=== PATIENT | male | born 1945 | race Caucasian/White ===

== ENCOUNTER 2018-03-28 12:02 | Inpatient (IN) | payer OTHER ==
[~2018-03-28] VITALS: Ht 180.3 cm; Wt 129.1 kg
[2018-03-28 12:41] LABS: BASOPHILS # (AUTO) 0.01 x10^3/uL (0-0.1); BASOPHILS % (AUTO) 0 % (0-1); EOSINOPHILS # (AUTO) 0.34 x10^3/uL (0-0.4); EOSINOPHILS % (AUTO) 3 % (1-7); LYMPHOCYTES # (AUTO) 0.89 x10^3/uL (1-3.4); LYMPHOCYTES % (AUTO) 8 % (22-44); MD NO; MEAN CORPUSCULAR HEMOGLOBIN 32.4 pg (27.5-34.5); MEAN CORPUSCULAR HGB CONC 33.5 g/dL (33.2-36.2); MEAN CORPUSCULAR VOLUME 96.7 fL (81-97); MEAN PLATELET VOLUME 8.2 fL (7.4-10.4); MONOCYTES # (AUTO) 1.31 x10^3/uL (0.2-0.8); MONOCYTES % (AUTO) 12 % (2-9); NEUTROPHILS # (AUTO) 8.24 x10^3/uL (1.8-6.8); NEUTROPHILS % (AUTO) 76 % (42-75); PLATELET COUNT 290 x10^3/uL (130-400); RED BLOOD COUNT 4.06 x10^6/uL (4.38-5.82); RED CELL DISTRIBUTION WIDTH 12.8 % (9.4-14.8)
[2018-03-28 12:57] LABS: ALKALINE PHOSPHATASE 69 U/L (45-117); BILIRUBIN,TOTAL 1.1 mg/dL (0.2-1.0); TOTAL PROTEIN 8.7 g/dL (6.4-8.2); TROPONIN I < 0.015 ng/mL (0.000-0.045)
[2018-03-28 13:03] LABS: ALANINE AMINOTRANSFERASE 26 U/L (12-78); ALBUMIN 3.2 g/dL (3.4-5.0); CALCIUM 8.7 mg/dL (8.5-10.1); CHLORIDE 78 mmol/L (98-107); CREATININE 0.93 mg/dL (0.7-1.3)
[2018-03-28 13:14] LABS: ANION GAP 6 mmol/L (5-15)
[2018-03-28] MEDS ORDERED: POTA20TA14 PO (13:35)
[2018-03-28] MEDS ORDERED: APIX5TAB PO (13:35)
[2018-03-28] MEDS ORDERED: TAMS0.4C2 PO (13:36)
[2018-03-28] MEDS ORDERED: DILT180C9 PO (13:36)
[2018-03-28] MEDS ORDERED: MULT-6 PO (13:37)
[2018-03-28] MEDS ORDERED: IPRA4AER INH (13:38)
[2018-03-28] MEDS ORDERED: ERGO500017 PO (13:38)
[2018-03-28] MEDS ORDERED: FINA5TAB4 PO (13:39)
[2018-03-28] MEDS ORDERED: LEVO88TA4 PO (13:40)
[2018-03-28] MEDS ORDERED: ALBU8.5H8 INH (13:40)
[2018-03-28] MEDS ORDERED: FURO-92 PO (13:41)
[2018-03-28] MEDS ORDERED: ASPI-496 PO (13:41)
[2018-03-28] MEDS ORDERED: POTASSIUM CHLORIDE 20 MEQ TAB.ER.PRT ONE (13:44)
[2018-03-28] MEDS ORDERED: LIDOCAINE-MPF 1%, 5ML ONE (13:44)
[2018-03-28] MEDS ORDERED: POTASSIUM CHLORIDE 20 MEQ TAB.ER.PRT PO ONE (14:00)
[2018-03-28] MEDS ORDERED: ALBUTEROL SULFATE 2.5 MG/3 ML NPPB PRN ×2 (15:30→16:30)
[2018-03-28] MEDS ORDERED: POLYETHYLENE GLYCOL 17 GM PACKET PO PRN (15:30)
[2018-03-28] MEDS ORDERED: BISACODYL 10 MG SUPP PR PRN (15:30)
[2018-03-28] MEDS ORDERED: LABETALOL 5MG/ML, 20ML IVPush PRN (15:30)
[2018-03-28] MEDS ORDERED: ACETAMINOPHEN 325 MG TABLET PO PRN (15:30)
[2018-03-28] MEDS ORDERED: ONDANSETRON ODT 4 MG PO PRN (15:30)
[2018-03-28] MEDS ORDERED: ONDANSETRON 2MG/ML, 2ML IVPush PRN (15:30)
[2018-03-28] MEDS ORDERED: hydrALAzine 20 MG/ML, 1ML IVPush PRN (15:30)
[2018-03-28 15:31] VITALS: BP 106/71
[2018-03-28] MEDS: PLEASE ENTER HEIGHT AND WEIGHT MC SCH (16:00)
[2018-03-28] MEDS: POTASSIUM CHLORIDE 20 MEQ TAB.ER.PRT PO SCH (17:35)
[2018-03-28] MEDS: ERGOCALCIFEROL 50,000 UNIT CAPSULE PO SCH (17:35)
[2018-03-28] MEDS: FUROSEMIDE 40 MG/4 ML IV SCH (17:36)
[2018-03-28 19:00] VITALS: BP 112/74
[2018-03-28] MEDS: DOCUSATE 100 MG CAPSULE PO SCH (21:13)
[2018-03-29 01:22] VITALS: BP 110/68
[2018-03-29 05:34] LABS: BASOPHILS # (AUTO) 0.05 x10^3/uL (0-0.1); BASOPHILS % (AUTO) 1 % (0-1); EOSINOPHILS # (AUTO) 0.53 x10^3/uL (0-0.4); EOSINOPHILS % (AUTO) 5 % (1-7); LYMPHOCYTES # (AUTO) 0.69 x10^3/uL (1-3.4); LYMPHOCYTES % (AUTO) 7 % (22-44); MD NO; MEAN CORPUSCULAR HEMOGLOBIN 32.5 pg (27.5-34.5); MEAN CORPUSCULAR HGB CONC 33.4 g/dL (33.2-36.2); MEAN CORPUSCULAR VOLUME 97.2 fL (81-97); MEAN PLATELET VOLUME 8.3 fL (7.4-10.4); MONOCYTES # (AUTO) 1.05 x10^3/uL (0.2-0.8); MONOCYTES % (AUTO) 11 % (2-9); NEUTROPHILS # (AUTO) 7.55 x10^3/uL (1.8-6.8); NEUTROPHILS % (AUTO) 77 % (42-75); PLATELET COUNT 242 x10^3/uL (130-400); RED CELL DISTRIBUTION WIDTH 12.8 % (9.4-14.8)
[2018-03-29 05:40] LABS: CHLORIDE 83 mmol/L (98-107)
[2018-03-29 05:51] LABS: ALANINE AMINOTRANSFERASE 23 U/L (12-78); ALBUMIN 2.6 g/dL (3.4-5.0); ALKALINE PHOSPHATASE 61 U/L (45-117); BILIRUBIN,TOTAL 0.7 mg/dL (0.2-1.0); CALCIUM 8.5 mg/dL (8.5-10.1); CREATININE 0.74 mg/dL (0.7-1.3); TOTAL PROTEIN 7.5 g/dL (6.4-8.2)
[2018-03-29 06:27] LABS: ANION GAP 5 mmol/L (5-15)
[2018-03-29 07:30] VITALS: BP 114/73
[2018-03-29] MEDS: PLEASE ENTER HEIGHT AND WEIGHT MC SCH ×3 (08:00→16:00)
[2018-03-29] MEDS: DILTIAZEM CD 180 MG CAP.ER.24H PO SCH (08:03)
[2018-03-29] MEDS: POTASSIUM CHLORIDE 20 MEQ TAB.ER.PRT PO SCH ×2 (08:03→17:59)
[2018-03-29] MEDS: FUROSEMIDE 40 MG/4 ML IV SCH (08:04)
[2018-03-29] MEDS: DOCUSATE 100 MG CAPSULE PO SCH ×2 (08:04→14:59)
[2018-03-29] MEDS: LEVOTHYROXINE 88 MCG TABLET PO SCH (08:12)
[2018-03-29 13:02] LABS: CALCIUM 8.5 mg/dL (8.5-10.1); CHLORIDE 83 mmol/L (98-107); CREATININE 0.83 mg/dL (0.7-1.3)
[2018-03-29 13:42] VITALS: BP 116/76
[2018-03-29 13:50] LABS: ANION GAP 2 mmol/L (5-15)
[2018-03-29 19:30] VITALS: BP 125/77
[2018-03-29] MEDS ORDERED: OMNIPAQUE 350 MG/ML, 75ML BOTTLE ONE (20:00)
[2018-03-29] MEDS: AcetaZOLAMIDE INJ 500 MG IVPush SCH (20:47)
[2018-03-29] MEDS: TAMSULOSIN 0.4 MG CAP.ER.24H PO SCH (20:48)
[2018-03-29] MEDS: FINASTERIDE 5 MG TABLET PO SCH (20:48)
[2018-03-30 01:39] VITALS: BP 122/81
[2018-03-30] MEDS: LEVOTHYROXINE 88 MCG TABLET PO SCH (05:02)
[2018-03-30 05:07] LABS: BASOPHILS # (AUTO) 0.03 x10^3/uL (0-0.1); BASOPHILS % (AUTO) 0 % (0-1); EOSINOPHILS # (AUTO) 0.41 x10^3/uL (0-0.4); EOSINOPHILS % (AUTO) 4 % (1-7); LYMPHOCYTES # (AUTO) 0.74 x10^3/uL (1-3.4); LYMPHOCYTES % (AUTO) 8 % (22-44); MD NO; MEAN CORPUSCULAR HEMOGLOBIN 32.4 pg (27.5-34.5); MEAN CORPUSCULAR HGB CONC 32.8 g/dL (33.2-36.2); MEAN CORPUSCULAR VOLUME 98.5 fL (81-97); MEAN PLATELET VOLUME 8.2 fL (7.4-10.4); MONOCYTES # (AUTO) 1.04 x10^3/uL (0.2-0.8); MONOCYTES % (AUTO) 11 % (2-9); NEUTROPHILS % (AUTO) 77 % (42-75); PLATELET COUNT 236 x10^3/uL (130-400); RED BLOOD COUNT 3.81 x10^6/uL (4.38-5.82); RED CELL DISTRIBUTION WIDTH 13.1 % (9.4-14.8)
[2018-03-30 05:17] LABS: ALBUMIN 2.8 g/dL (3.4-5.0); CALCIUM 8.7 mg/dL (8.5-10.1); CHLORIDE 85 mmol/L (98-107)
[2018-03-30 05:18] LABS: CREATININE 0.82 mg/dL (0.7-1.3)
[2018-03-30 05:29] LABS: ANION GAP 3 mmol/L (5-15)
[2018-03-30 07:23] VITALS: BP 110/72
[2018-03-30] MEDS ORDERED: POTASSIUM CHLORIDE 20 MEQ TAB.ER.PRT ONE ×2 (08:52→08:58)
[2018-03-30] MEDS: AcetaZOLAMIDE INJ 500 MG IVPush SCH ×2 (08:59→20:35)
[2018-03-30] MEDS: DILTIAZEM CD 180 MG CAP.ER.24H PO SCH (08:59)
[2018-03-30] MEDS: DOCUSATE 100 MG CAPSULE PO SCH ×2 (09:00→21:47)
[2018-03-30] MEDS: TAMSULOSIN 0.4 MG CAP.ER.24H PO SCH (09:00)
[2018-03-30] MEDS ORDERED: POTASSIUM CHLORIDE 20 MEQ TAB.ER.PRT PO SCH (09:00)
[2018-03-30] MEDS: FINASTERIDE 5 MG TABLET PO SCH (09:00)
[2018-03-30] MEDS ORDERED: POTASSIUM CHLORIDE 10% 40 MEQ/30 ML UDC ONE (09:04)
[2018-03-30] MEDS ORDERED: BUPIVACAINE/PF-EPI 0.5% 1:200K ONE (11:49)
[2018-03-30] MEDS ORDERED: POTASSIUM CHLORIDE 10% 40 MEQ/30 ML UDC PO ONE ×2 (13:00→22:00)
[2018-03-30 13:30] VITALS: BP 96/63
[2018-03-30] MEDS ORDERED: FENTANYL PF 100 MCG/2ML ONE (17:24)
[2018-03-30] MEDS ORDERED: BUPIVACAINE/PF-EPI 0.5% 1:200K INFIL ONE (17:52)
[2018-03-30] MEDS ORDERED: GLYCOPYRROLATE 0.2MG/1ML, 5ML ONE (18:06)
[2018-03-30] MEDS ORDERED: PROPOFOL 10 MG/ML, 20ML ONE (18:06)
[2018-03-30] MEDS ORDERED: NEOSTIGMINE 1 MG/ML, 10ML ONE (18:06)
[2018-03-30] MEDS ORDERED: SUCCINYLCHOLINE 20 MG/ML, 10ML ONE (18:06)
[2018-03-30] MEDS ORDERED: DEXAMETHASONE 4 MG/ML, 1ML ONE (18:06)
[2018-03-30] MEDS ORDERED: ROCURONIUM 10MG/ML,5ML ONE (18:06)
[2018-03-30] MEDS ORDERED: ONDANSETRON 2MG/ML, 2ML ONE (18:06)
[2018-03-30] MEDS ORDERED: CEFAZOLIN 1,000 MG ONE (18:06)
[2018-03-30] MEDS ORDERED: OXYcodone 5 MG/5 ML ORAL.SOL UDC PO PRN (18:30)
[2018-03-30] MEDS ORDERED: MEPERIDINE/PF 25MG/0.5ML IVPush PRN (18:30)
[2018-03-30] MEDS ORDERED: FENTANYL PF 100 MCG/2ML IV PRN (18:30)
[2018-03-30] MEDS ORDERED: HYDROmorphone 1 MG/ML, 1ML IV PRN (18:30)
[2018-03-30] MEDS ORDERED: LABETALOL 5MG/ML, 20ML IV PRN (18:30)
[2018-03-30] MEDS ORDERED: hydrALAzine 20 MG/ML, 1ML IV PRN (18:30)
[2018-03-30] MEDS ORDERED: PROCHLORPERAZINE 5 MG/ML, 2ML IV PRN (18:30)
[2018-03-30] MEDS ORDERED: DIPHENHYDRAMINE 50 MG/ML, 1ML IVPush PRN (18:30)
[2018-03-30] MEDS ORDERED: PROPOFOL 100 ML IV ONE (19:30)
[2018-03-30] MEDS ORDERED: PROPOFOL 100 ML IV PRN (20:14)
[2018-03-30] MEDS ORDERED: SENNA/DOCUSATE TABLET NG PRN (20:30)
[2018-03-30] MEDS ORDERED: LACTULOSE 20 GM/30 ML UDC NG PRN (20:30)
[2018-03-30] MEDS ORDERED: PHARMACY MAY ADJ FOR RENAL FX MC SCH (20:30)
[2018-03-30] MEDS ORDERED: SODIUM CHLORIDE 0.9% 1,000ML IVBOLUS ONE ×2 (20:30→22:30)
[2018-03-30] MEDS ORDERED: LIDOCAINE-MPF 1%, 2ML ENDO PRN (20:30)
[2018-03-30] MEDS ORDERED: FENTANYL PF 100 MCG/2ML IVPush PRN (20:30)
[2018-03-30] MEDS ORDERED: BISACODYL 10 MG SUPP PR PRN (20:30)
[2018-03-30] MEDS ORDERED: SENNOSIDES 8.8 MG/5 ML ORAL SOL NG PRN (20:30)
[2018-03-30] MEDS: ALBUTEROL/IPRATROPIUM 2.5MG/0.5MG, 3 ML INLINE SCH (20:30)
[2018-03-30 21:13] LABS: ANION GAP 9 mmol/L (5-15); CALCIUM 8.3 mg/dL (8.5-10.1); CHLORIDE 91 mmol/L (98-107)
[2018-03-30 21:14] LABS: TRIGLYCERIDES 125 mg/dL (50-200)
[2018-03-30] MEDS: POTASSIUM CHLORIDE 10% 40 MEQ/30 ML UDC PO SCH (21:39)
[2018-03-30] MEDS: FAMOTIDINE 20 MG/2 ML IV SCH (21:47)
[2018-03-30] MEDS: DEXMEDETOMIDINE 1,000 MCG in SODIUM CHLORIDE 0.9% 240 ML IV PRN (22:37)
[2018-03-31] MEDS ORDERED: POTASSIUM CHLORIDE 10% 40 MEQ/30 ML UDC PO ONE ×2 (02:00→08:00)
[2018-03-31] MEDS: ALBUTEROL/IPRATROPIUM 2.5MG/0.5MG, 3 ML INLINE SCH ×7 (02:10→22:50)
[2018-03-31] MEDS ORDERED: SODIUM CHLORIDE 0.9% 1,000ML IVBOLUS ONE (02:30)
[2018-03-31 03:42] VITALS: BP 79/52
[2018-03-31 04:14] LABS: BASOPHILS # (AUTO) 0.02 x10^3/uL (0-0.1); BASOPHILS % (AUTO) 0 % (0-1); EOSINOPHILS # (AUTO) 0.02 x10^3/uL (0-0.4); EOSINOPHILS % (AUTO) 0 % (1-7); LYMPHOCYTES % (AUTO) 4 % (22-44); MD NO; MEAN CORPUSCULAR HEMOGLOBIN 32.4 pg (27.5-34.5); MEAN CORPUSCULAR HGB CONC 33.4 g/dL (33.2-36.2); MEAN PLATELET VOLUME 8.4 fL (7.4-10.4); MONOCYTES # (AUTO) 0.73 x10^3/uL (0.2-0.8); MONOCYTES % (AUTO) 6 % (2-9); NEUTROPHILS # (AUTO) 10.17 x10^3/uL (1.8-6.8); NEUTROPHILS % (AUTO) 89 % (42-75); PLATELET COUNT 234 x10^3/uL (130-400); RED BLOOD COUNT 3.67 x10^6/uL (4.38-5.82); RED CELL DISTRIBUTION WIDTH 12.8 % (9.4-14.8)
[2018-03-31 04:27] LABS: ALBUMIN 2.2 g/dL (3.4-5.0); ANION GAP 7 mmol/L (5-15); CALCIUM 7.9 mg/dL (8.5-10.1); CHLORIDE 96 mmol/L (98-107)
[2018-03-31 04:31] LABS: ALANINE AMINOTRANSFERASE 17 U/L (12-78); ALKALINE PHOSPHATASE 47 U/L (45-117); BILIRUBIN,TOTAL 0.9 mg/dL (0.2-1.0); CREATININE 0.73 mg/dL (0.7-1.3); TOTAL PROTEIN 6.5 g/dL (6.4-8.2)
[2018-03-31] MEDS ORDERED: MIDAZOLAM 1 MG/ML, 5ML ONE (05:31)
[2018-03-31] MEDS ORDERED: NOREPINEPHRINE 1 MG/ML, 4ML ONE (05:53)
[2018-03-31] MEDS: TAMSULOSIN 0.4 MG CAP.ER.24H PO SCH (07:45)
[2018-03-31] MEDS: LEVOTHYROXINE 88 MCG TABLET PO SCH (07:45)
[2018-03-31] MEDS: FAMOTIDINE 20 MG/2 ML IV SCH ×2 (07:45→19:44)
[2018-03-31] MEDS ORDERED: MAGNESIUM SULFATE PMX 4GM/100M 100 ML IV ONE (08:00)
[2018-03-31] MEDS: DILTIAZEM CD 180 MG CAP.ER.24H PO SCH (08:29)
[2018-03-31] MEDS: DOCUSATE 100 MG CAPSULE PO SCH ×2 (08:29→19:44)
[2018-03-31] MEDS: AcetaZOLAMIDE INJ 500 MG IVPush SCH ×2 (08:29→19:37)
[2018-03-31] MEDS: FINASTERIDE 5 MG TABLET PO SCH (08:30)
[2018-03-31] MEDS: POTASSIUM CHLORIDE 10% 40 MEQ/30 ML UDC PO SCH (18:14)
[2018-03-31] MEDS: NOREPINEPHRINE 4 MG in SODIUM CHLORIDE 0.9% 246 ML IV PRN (19:43)
[2018-03-31] MEDS: DEXMEDETOMIDINE 1,000 MCG in SODIUM CHLORIDE 0.9% 240 ML IV PRN (19:43)
[2018-04-01] MEDS: ALBUTEROL/IPRATROPIUM 2.5MG/0.5MG, 3 ML INLINE SCH ×2 (01:58→06:30)
[2018-04-01 04:25] VITALS: BP 92/56
[2018-04-01 04:49] LABS: BASOPHILS # (AUTO) 0.03 x10^3/uL (0-0.1); BASOPHILS % (AUTO) 0 % (0-1); EOSINOPHILS # (AUTO) 0.19 x10^3/uL (0-0.4); EOSINOPHILS % (AUTO) 2 % (1-7); LYMPHOCYTES # (AUTO) 0.74 x10^3/uL (1-3.4); LYMPHOCYTES % (AUTO) 8 % (22-44); MD NO; MEAN CORPUSCULAR HEMOGLOBIN 32.8 pg (27.5-34.5); MEAN CORPUSCULAR HGB CONC 34.2 g/dL (33.2-36.2); MEAN PLATELET VOLUME 8.7 fL (7.4-10.4); MONOCYTES # (AUTO) 0.81 x10^3/uL (0.2-0.8); MONOCYTES % (AUTO) 8 % (2-9); NEUTROPHILS % (AUTO) 82 % (42-75); PLATELET COUNT 244 x10^3/uL (130-400); RED BLOOD COUNT 3.79 x10^6/uL (4.38-5.82); RED CELL DISTRIBUTION WIDTH 12.9 % (9.4-14.8)
[2018-04-01 04:59] LABS: ANION GAP 11 mmol/L (5-15); CALCIUM 8.1 mg/dL (8.5-10.1); CHLORIDE 102 mmol/L (98-107); CREATININE 0.77 mg/dL (0.7-1.3)
[2018-04-01] MEDS: LEVOTHYROXINE 88 MCG TABLET PO SCH (06:24)
[2018-04-01] MEDS ORDERED: POTASSIUM CHLORIDE 10% 40 MEQ/30 ML UDC PO SCH (09:00)
[2018-04-01] MEDS ORDERED: ALBUTEROL/IPRATROPIUM 2.5MG/0.5MG, 3 ML NPPB PRN (09:30)
[2018-04-01] MEDS: TAMSULOSIN 0.4 MG CAP.ER.24H PO SCH (09:54)
[2018-04-01] MEDS: FINASTERIDE 5 MG TABLET PO SCH (09:54)
[2018-04-01] MEDS: DILTIAZEM CD 180 MG CAP.ER.24H PO SCH ×2 (09:54→09:59)
[2018-04-01] MEDS: DOCUSATE 100 MG CAPSULE PO SCH ×2 (09:55→20:42)
[2018-04-01] MEDS: FAMOTIDINE 20 MG/2 ML IV SCH ×2 (09:55→20:41)
[2018-04-01] MEDS: AcetaZOLAMIDE INJ 500 MG IVPush SCH ×2 (10:07→20:41)
[2018-04-01] MEDS: ALBUTEROL/IPRATROPIUM 2.5MG/0.5MG, 3 ML NPPB SCH ×3 (10:58→19:58)
[2018-04-01] MEDS ORDERED: POTASSIUM CHLORIDE 20 MEQ TAB.ER.PRT PO SCH (21:00)
[2018-04-01] MEDS: NOREPINEPHRINE 4 MG in SODIUM CHLORIDE 0.9% 246 ML IV PRN (22:09)
[2018-04-02 04:23] LABS: BASOPHILS # (AUTO) 0.03 x10^3/uL (0-0.1); BASOPHILS % (AUTO) 0 % (0-1); EOSINOPHILS # (AUTO) 0.61 x10^3/uL (0-0.4); EOSINOPHILS % (AUTO) 5 % (1-7); LYMPHOCYTES # (AUTO) 0.94 x10^3/uL (1-3.4); LYMPHOCYTES % (AUTO) 8 % (22-44); MD NO; MEAN CORPUSCULAR HEMOGLOBIN 31.6 pg (27.5-34.5); MEAN CORPUSCULAR HGB CONC 32.7 g/dL (33.2-36.2); MEAN CORPUSCULAR VOLUME 96.8 fL (81-97); MEAN PLATELET VOLUME 8.2 fL (7.4-10.4); MONOCYTES % (AUTO) 10 % (2-9); NEUTROPHILS # (AUTO) 8.54 x10^3/uL (1.8-6.8); NEUTROPHILS % (AUTO) 76 % (42-75); PLATELET COUNT 253 x10^3/uL (130-400); RED BLOOD COUNT 3.56 x10^6/uL (4.38-5.82); RED CELL DISTRIBUTION WIDTH 12.9 % (9.4-14.8)
[2018-04-02 04:37] LABS: ANION GAP 4 mmol/L (5-15); CALCIUM 8.2 mg/dL (8.5-10.1); CHLORIDE 103 mmol/L (98-107); TRIGLYCERIDES 114 mg/dL (50-200)
[2018-04-02 04:53] LABS: O2 FLOW 4 L/min
[2018-04-02] MEDS: LEVOTHYROXINE 88 MCG TABLET PO SCH (05:44)
[2018-04-02] MEDS: ALBUTEROL/IPRATROPIUM 2.5MG/0.5MG, 3 ML NPPB SCH ×4 (06:30→20:05)
[2018-04-02] MEDS: FAMOTIDINE 20 MG/2 ML IV SCH (08:03)
[2018-04-02] MEDS: DOCUSATE 100 MG CAPSULE PO SCH ×2 (08:03→20:27)
[2018-04-02] MEDS: AcetaZOLAMIDE INJ 500 MG IVPush SCH ×2 (08:03→20:27)
[2018-04-02] MEDS: FINASTERIDE 5 MG TABLET PO SCH (08:04)
[2018-04-02] MEDS: TAMSULOSIN 0.4 MG CAP.ER.24H PO SCH (08:04)
[2018-04-02] MEDS ORDERED: VASOPRESSIN 100 UNIT in SODIUM CHLORIDE 0.9% 495 ML IV PRN (08:30)
[2018-04-02] MEDS: FAMOTIDINE 20 MG TABLET PO SCH ×2 (09:00→20:27)
[2018-04-02] MEDS: HYDROCORTISONE 100 MG INJ. IVPush SCH ×3 (14:30→22:36)
[2018-04-03 04:40] LABS: BASOPHILS # (AUTO) 0.02 x10^3/uL (0-0.1); BASOPHILS % (AUTO) 0 % (0-1); EOSINOPHILS # (AUTO) 0.05 x10^3/uL (0-0.4); EOSINOPHILS % (AUTO) 1 % (1-7); LYMPHOCYTES # (AUTO) 0.58 x10^3/uL (1-3.4); LYMPHOCYTES % (AUTO) 6 % (22-44); MD NO; MEAN CORPUSCULAR HEMOGLOBIN 32.3 pg (27.5-34.5); MEAN CORPUSCULAR HGB CONC 33.3 g/dL (33.2-36.2); MEAN CORPUSCULAR VOLUME 97.3 fL (81-97); MEAN PLATELET VOLUME 8.4 fL (7.4-10.4); MONOCYTES # (AUTO) 0.74 x10^3/uL (0.2-0.8); MONOCYTES % (AUTO) 8 % (2-9); NEUTROPHILS # (AUTO) 7.57 x10^3/uL (1.8-6.8); NEUTROPHILS % (AUTO) 85 % (42-75); PLATELET COUNT 222 x10^3/uL (130-400); RED CELL DISTRIBUTION WIDTH 13.1 % (9.4-14.8)
[2018-04-03 04:52] LABS: ANION GAP 5 mmol/L (5-15); CALCIUM 8.2 mg/dL (8.5-10.1); CHLORIDE 101 mmol/L (98-107); CREATININE 0.65 mg/dL (0.7-1.3)
[2018-04-03] MEDS: LEVOTHYROXINE 88 MCG TABLET PO SCH (06:11)
[2018-04-03] MEDS: HYDROCORTISONE 100 MG INJ. IVPush SCH ×2 (06:30→21:05)
[2018-04-03] MEDS: ALBUTEROL/IPRATROPIUM 2.5MG/0.5MG, 3 ML NPPB SCH ×2 (06:45→21:19)
[2018-04-03] MEDS: AcetaZOLAMIDE INJ 500 MG IVPush SCH ×2 (08:48→21:06)
[2018-04-03] MEDS: DILTIAZEM CD 180 MG CAP.ER.24H PO SCH (08:48)
[2018-04-03] MEDS: TAMSULOSIN 0.4 MG CAP.ER.24H PO SCH (08:48)
[2018-04-03] MEDS: DOCUSATE 100 MG CAPSULE PO SCH ×2 (08:48→21:04)
[2018-04-03] MEDS: FINASTERIDE 5 MG TABLET PO SCH (08:48)
[2018-04-03] MEDS: FAMOTIDINE 20 MG TABLET PO SCH ×2 (08:48→21:04)
[2018-04-03] MEDS ORDERED: SODIUM CHLORIDE 0.9% INTRAPL ONE (16:00)
[2018-04-03] MEDS ORDERED: DOXYCYCLINE INTRAPL ONE (16:00)
[2018-04-04 04:24] LABS: BASOPHILS # (AUTO) 0.02 x10^3/uL (0-0.1); BASOPHILS % (AUTO) 0 % (0-1); EOSINOPHILS # (AUTO) 0.14 x10^3/uL (0-0.4); EOSINOPHILS % (AUTO) 2 % (1-7); LYMPHOCYTES # (AUTO) 0.59 x10^3/uL (1-3.4); LYMPHOCYTES % (AUTO) 7 % (22-44); MD NO; MEAN CORPUSCULAR HEMOGLOBIN 32.4 pg (27.5-34.5); MEAN CORPUSCULAR HGB CONC 33.5 g/dL (33.2-36.2); MEAN CORPUSCULAR VOLUME 96.7 fL (81-97); MEAN PLATELET VOLUME 8.6 fL (7.4-10.4); MONOCYTES % (AUTO) 7 % (2-9); NEUTROPHILS # (AUTO) 7.26 x10^3/uL (1.8-6.8); NEUTROPHILS % (AUTO) 84 % (42-75); PLATELET COUNT 246 x10^3/uL (130-400); RED BLOOD COUNT 3.39 x10^6/uL (4.38-5.82); RED CELL DISTRIBUTION WIDTH 12.8 % (9.4-14.8)
[2018-04-04 04:35] LABS: ANION GAP 5 mmol/L (5-15); CALCIUM 8.3 mg/dL (8.5-10.1); CHLORIDE 102 mmol/L (98-107); CREATININE 0.58 mg/dL (0.7-1.3)
[2018-04-04] MEDS: LEVOTHYROXINE 88 MCG TABLET PO SCH (06:22)
[2018-04-04] MEDS: FAMOTIDINE 20 MG TABLET PO SCH ×2 (09:18→21:10)
[2018-04-04] MEDS: TAMSULOSIN 0.4 MG CAP.ER.24H PO SCH (09:18)
[2018-04-04] MEDS: AcetaZOLAMIDE INJ 500 MG IVPush SCH ×2 (09:18→22:08)
[2018-04-04] MEDS: DILTIAZEM CD 180 MG CAP.ER.24H PO SCH (09:18)
[2018-04-04] MEDS: DOCUSATE 100 MG CAPSULE PO SCH ×2 (09:18→21:10)
[2018-04-04] MEDS: HYDROCORTISONE 100 MG INJ. IVPush SCH (09:18)
[2018-04-04] MEDS: FINASTERIDE 5 MG TABLET PO SCH (09:19)
[2018-04-04] MEDS: ALBUTEROL/IPRATROPIUM 2.5MG/0.5MG, 3 ML NPPB SCH ×2 (10:37→20:32)
[2018-04-04] MEDS: APIXABAN 5 MG TABLET PO SCH ×2 (12:06→21:10)
[2018-04-04] MEDS: ERGOCALCIFEROL 50,000 UNIT CAPSULE PO SCH (14:57)
[2018-04-04 16:27] VITALS: BP 102/66
[2018-04-04 21:01] VITALS: BP 103/61
[2018-04-05 01:03] VITALS: BP 104/61
[2018-04-05 05:11] LABS: BASOPHILS # (AUTO) 0.03 x10^3/uL (0-0.1); BASOPHILS % (AUTO) 0 % (0-1); EOSINOPHILS # (AUTO) 0.23 x10^3/uL (0-0.4); EOSINOPHILS % (AUTO) 3 % (1-7); LYMPHOCYTES # (AUTO) 0.75 x10^3/uL (1-3.4); LYMPHOCYTES % (AUTO) 9 % (22-44); MD NO; MEAN CORPUSCULAR HEMOGLOBIN 31.7 pg (27.5-34.5); MEAN CORPUSCULAR HGB CONC 32.9 g/dL (33.2-36.2); MEAN CORPUSCULAR VOLUME 96.3 fL (81-97); MEAN PLATELET VOLUME 8.5 fL (7.4-10.4); MONOCYTES # (AUTO) 0.92 x10^3/uL (0.2-0.8); MONOCYTES % (AUTO) 11 % (2-9); NEUTROPHILS # (AUTO) 6.58 x10^3/uL (1.8-6.8); NEUTROPHILS % (AUTO) 77 % (42-75); PLATELET COUNT 274 x10^3/uL (130-400); RED BLOOD COUNT 3.47 x10^6/uL (4.38-5.82); RED CELL DISTRIBUTION WIDTH 12.7 % (9.4-14.8)
[2018-04-05 05:18] LABS: ANION GAP 5 mmol/L (5-15); CHLORIDE 104 mmol/L (98-107)
[2018-04-05 05:20] LABS: CALCIUM 8.5 mg/dL (8.5-10.1); CREATININE 0.62 mg/dL (0.7-1.3)
[2018-04-05] MEDS: LEVOTHYROXINE 88 MCG TABLET PO SCH (05:53)
[2018-04-05] MEDS: ALBUTEROL/IPRATROPIUM 2.5MG/0.5MG, 3 ML NPPB SCH (07:25)
[2018-04-05 08:04] VITALS: BP 105/58
[2018-04-05] MEDS ORDERED: HYDROCORTISONE 100 MG INJ. IVPush SCH (09:00)
[2018-04-05] MEDS: TAMSULOSIN 0.4 MG CAP.ER.24H PO SCH (10:06)
[2018-04-05] MEDS: APIXABAN 5 MG TABLET PO SCH ×2 (10:06→21:19)
[2018-04-05] MEDS: DILTIAZEM CD 180 MG CAP.ER.24H PO SCH (10:07)
[2018-04-05] MEDS: FAMOTIDINE 20 MG TABLET PO SCH ×2 (10:07→21:19)
[2018-04-05] MEDS: DOCUSATE 100 MG CAPSULE PO SCH ×2 (10:08→21:19)
[2018-04-05] MEDS: FINASTERIDE 5 MG TABLET PO SCH (10:08)
[2018-04-05] MEDS: AcetaZOLAMIDE INJ 500 MG IVPush SCH ×2 (10:11→21:19)
[2018-04-05 12:25] VITALS: BP 101/58
[2018-04-05 18:46] VITALS: BP 94/45
[2018-04-05] MEDS: ALBUTEROL/IPRATROPIUM 2.5MG/0.5MG, 3 ML IPPB SCH (19:46)
[2018-04-06 00:53] VITALS: BP 116/73
[2018-04-06 05:23] LABS: CHLORIDE 104 mmol/L (98-107)
[2018-04-06 05:28] LABS: ANION GAP 8 mmol/L (5-15); CALCIUM 8.4 mg/dL (8.5-10.1); CREATININE 0.61 mg/dL (0.7-1.3)
[2018-04-06 05:52] LABS: BASOPHILS # (AUTO) 0.05 x10^3/uL (0-0.1); BASOPHILS % (AUTO) 0 % (0-1); EOSINOPHILS # (AUTO) 0.18 x10^3/uL (0-0.4); EOSINOPHILS % (AUTO) 2 % (1-7); LYMPHOCYTES # (AUTO) 0.78 x10^3/uL (1-3.4); LYMPHOCYTES % (AUTO) 7 % (22-44); MD NO; MEAN CORPUSCULAR HEMOGLOBIN 32.6 pg (27.5-34.5); MEAN CORPUSCULAR HGB CONC 33.8 g/dL (33.2-36.2); MEAN CORPUSCULAR VOLUME 96.5 fL (81-97); MEAN PLATELET VOLUME 8.7 fL (7.4-10.4); MONOCYTES # (AUTO) 1.38 x10^3/uL (0.2-0.8); MONOCYTES % (AUTO) 12 % (2-9); NEUTROPHILS # (AUTO) 9.58 x10^3/uL (1.8-6.8); NEUTROPHILS % (AUTO) 80 % (42-75); PLATELET COUNT 285 x10^3/uL (130-400); RED BLOOD COUNT 3.55 x10^6/uL (4.38-5.82); RED CELL DISTRIBUTION WIDTH 13.1 % (9.4-14.8)
[2018-04-06] MEDS: LEVOTHYROXINE 88 MCG TABLET PO SCH (06:27)
[2018-04-06 06:47] VITALS: BP 134/84
[2018-04-06] MEDS: ALBUTEROL/IPRATROPIUM 2.5MG/0.5MG, 3 ML IPPB SCH ×3 (07:46→18:50)
[2018-04-06] MEDS: DILTIAZEM CD 180 MG CAP.ER.24H PO SCH (08:38)
[2018-04-06] MEDS: DOCUSATE 100 MG CAPSULE PO SCH ×2 (08:38→19:58)
[2018-04-06] MEDS: FINASTERIDE 5 MG TABLET PO SCH (08:38)
[2018-04-06] MEDS: TAMSULOSIN 0.4 MG CAP.ER.24H PO SCH (08:38)
[2018-04-06] MEDS: AcetaZOLAMIDE INJ 500 MG IVPush SCH ×2 (08:39→19:59)
[2018-04-06] MEDS: FAMOTIDINE 20 MG TABLET PO SCH ×2 (08:39→19:59)
[2018-04-06] MEDS: APIXABAN 5 MG TABLET PO SCH ×2 (08:39→19:59)
[2018-04-06 12:13] VITALS: BP 101/61
[2018-04-06 19:53] VITALS: BP 118/70
[2018-04-07 03:35] VITALS: BP 88/58
[2018-04-07] MEDS: LEVOTHYROXINE 88 MCG TABLET PO SCH (05:05)
[2018-04-07 05:52] LABS: BASOPHILS # (AUTO) 0.04 x10^3/uL (0-0.1); BASOPHILS % (AUTO) 0 % (0-1); EOSINOPHILS # (AUTO) 0.18 x10^3/uL (0-0.4); EOSINOPHILS % (AUTO) 2 % (1-7); LYMPHOCYTES # (AUTO) 0.99 x10^3/uL (1-3.4); LYMPHOCYTES % (AUTO) 9 % (22-44); MD NO; MEAN CORPUSCULAR HGB CONC 33.2 g/dL (33.2-36.2); MEAN CORPUSCULAR VOLUME 96.4 fL (81-97); MEAN PLATELET VOLUME 8.8 fL (7.4-10.4); MONOCYTES # (AUTO) 1.34 x10^3/uL (0.2-0.8); MONOCYTES % (AUTO) 12 % (2-9); NEUTROPHILS # (AUTO) 8.58 x10^3/uL (1.8-6.8); NEUTROPHILS % (AUTO) 77 % (42-75); PLATELET COUNT 304 x10^3/uL (130-400); RED BLOOD COUNT 3.59 x10^6/uL (4.38-5.82); RED CELL DISTRIBUTION WIDTH 12.9 % (9.4-14.8)
[2018-04-07 05:59] LABS: ALBUMIN 2.1 g/dL (3.4-5.0); ANION GAP 6 mmol/L (5-15); CALCIUM 7.9 mg/dL (8.5-10.1); CHLORIDE 104 mmol/L (98-107)
[2018-04-07 06:05] LABS: ALANINE AMINOTRANSFERASE 39 U/L (12-78); ALKALINE PHOSPHATASE 77 U/L (45-117); BILIRUBIN,TOTAL 0.8 mg/dL (0.2-1.0); CREATININE 0.54 mg/dL (0.7-1.3); TOTAL PROTEIN 6.4 g/dL (6.4-8.2)
[2018-04-07 06:48] VITALS: BP 104/58
[2018-04-07] MEDS: FINASTERIDE 5 MG TABLET PO SCH (09:43)
[2018-04-07] MEDS: FAMOTIDINE 20 MG TABLET PO SCH ×2 (09:43→21:31)
[2018-04-07] MEDS: AcetaZOLAMIDE INJ 500 MG IVPush SCH (09:43)
[2018-04-07] MEDS: DILTIAZEM CD 180 MG CAP.ER.24H PO SCH (09:43)
[2018-04-07] MEDS: APIXABAN 5 MG TABLET PO SCH ×2 (09:43→21:31)
[2018-04-07] MEDS: TAMSULOSIN 0.4 MG CAP.ER.24H PO SCH (09:43)
[2018-04-07] MEDS: DOCUSATE 100 MG CAPSULE PO SCH ×2 (09:43→21:31)
[2018-04-07] MEDS: ALBUTEROL/IPRATROPIUM 2.5MG/0.5MG, 3 ML IPPB SCH (10:00)
[2018-04-07 12:51] VITALS: BP 89/53
[2018-04-07 13:56] VITALS: BP 91/57
[2018-04-07 20:42] VITALS: BP 106/58
[2018-04-08 01:59] VITALS: BP 99/60
[2018-04-08 05:22] LABS: BASOPHILS # (AUTO) 0.07 x10^3/uL (0-0.1); BASOPHILS % (AUTO) 1 % (0-1); EOSINOPHILS # (AUTO) 0.27 x10^3/uL (0-0.4); EOSINOPHILS % (AUTO) 2 % (1-7); LYMPHOCYTES # (AUTO) 0.96 x10^3/uL (1-3.4); LYMPHOCYTES % (AUTO) 8 % (22-44); MD NO; MEAN CORPUSCULAR HEMOGLOBIN 32.5 pg (27.5-34.5); MEAN CORPUSCULAR HGB CONC 33.8 g/dL (33.2-36.2); MEAN PLATELET VOLUME 8.4 fL (7.4-10.4); MONOCYTES # (AUTO) 1.42 x10^3/uL (0.2-0.8); MONOCYTES % (AUTO) 12 % (2-9); NEUTROPHILS # (AUTO) 9.05 x10^3/uL (1.8-6.8); NEUTROPHILS % (AUTO) 77 % (42-75); PLATELET COUNT 327 x10^3/uL (130-400); RED BLOOD COUNT 3.21 x10^6/uL (4.38-5.82); RED CELL DISTRIBUTION WIDTH 13.1 % (9.4-14.8)
[2018-04-08 05:43] LABS: CHLORIDE 104 mmol/L (98-107)
[2018-04-08 05:49] LABS: ALANINE AMINOTRANSFERASE 34 U/L (12-78); ALKALINE PHOSPHATASE 77 U/L (45-117); ANION GAP 6 mmol/L (5-15); BILIRUBIN,TOTAL 0.7 mg/dL (0.2-1.0); CALCIUM 8.4 mg/dL (8.5-10.1); TOTAL PROTEIN 6.4 g/dL (6.4-8.2)
[2018-04-08] MEDS: LEVOTHYROXINE 88 MCG TABLET PO SCH (06:31)
[2018-04-08 06:53] VITALS: BP 93/62
[2018-04-08] MEDS: ALBUTEROL/IPRATROPIUM 2.5MG/0.5MG, 3 ML IPPB SCH ×2 (07:45→20:20)
[2018-04-08] MEDS: FAMOTIDINE 20 MG TABLET PO SCH ×2 (08:54→21:34)
[2018-04-08] MEDS: APIXABAN 5 MG TABLET PO SCH ×2 (08:54→21:34)
[2018-04-08] MEDS: FINASTERIDE 5 MG TABLET PO SCH (08:54)
[2018-04-08] MEDS: TAMSULOSIN 0.4 MG CAP.ER.24H PO SCH (08:54)
[2018-04-08] MEDS: DOCUSATE 100 MG CAPSULE PO SCH ×2 (08:54→21:34)
[2018-04-08] MEDS ORDERED: DILTIAZEM 120 MG CAP.ER.24H PO SCH (09:00)
[2018-04-08 09:01] VITALS: BP 95/49
[2018-04-08 12:54] VITALS: BP 117/66
[2018-04-08 19:44] VITALS: BP 126/69
[2018-04-09 03:34] VITALS: BP 114/67
[2018-04-09 05:38] LABS: BASOPHILS # (AUTO) 0.05 x10^3/uL (0-0.1); BASOPHILS % (AUTO) 1 % (0-1); EOSINOPHILS # (AUTO) 0.25 x10^3/uL (0-0.4); EOSINOPHILS % (AUTO) 3 % (1-7); LYMPHOCYTES # (AUTO) 0.81 x10^3/uL (1-3.4); LYMPHOCYTES % (AUTO) 11 % (22-44); MD NO; MEAN CORPUSCULAR HEMOGLOBIN 32.1 pg (27.5-34.5); MEAN CORPUSCULAR HGB CONC 33.2 g/dL (33.2-36.2); MEAN CORPUSCULAR VOLUME 96.5 fL (81-97); MEAN PLATELET VOLUME 8.4 fL (7.4-10.4); MONOCYTES # (AUTO) 0.93 x10^3/uL (0.2-0.8); MONOCYTES % (AUTO) 12 % (2-9); NEUTROPHILS # (AUTO) 5.69 x10^3/uL (1.8-6.8); NEUTROPHILS % (AUTO) 74 % (42-75); PLATELET COUNT 317 x10^3/uL (130-400); RED BLOOD COUNT 3.54 x10^6/uL (4.38-5.82); RED CELL DISTRIBUTION WIDTH 12.8 % (9.4-14.8)
[2018-04-09 05:49] LABS: ANION GAP 5 mmol/L (5-15); CALCIUM 8.3 mg/dL (8.5-10.1); CHLORIDE 104 mmol/L (98-107); CREATININE 0.46 mg/dL (0.7-1.3)
[2018-04-09] MEDS: LEVOTHYROXINE 88 MCG TABLET PO SCH (06:27)
[2018-04-09 07:46] VITALS: BP 94/63
[2018-04-09] MEDS: ALBUTEROL/IPRATROPIUM 2.5MG/0.5MG, 3 ML IPPB SCH ×2 (07:46→19:39)
[2018-04-09] MEDS: FINASTERIDE 5 MG TABLET PO SCH (08:19)
[2018-04-09] MEDS: APIXABAN 5 MG TABLET PO SCH ×2 (08:19→21:24)
[2018-04-09] MEDS: FAMOTIDINE 20 MG TABLET PO SCH ×2 (08:19→21:24)
[2018-04-09] MEDS: TAMSULOSIN 0.4 MG CAP.ER.24H PO SCH (08:19)
[2018-04-09] MEDS: DOCUSATE 100 MG CAPSULE PO SCH ×2 (08:19→21:24)
[2018-04-09 13:16] VITALS: BP 102/62
[2018-04-09 19:52] VITALS: BP 98/63
[2018-04-10 02:09] VITALS: BP 104/66
[2018-04-10 05:43] LABS: BASOPHILS # (AUTO) 0.03 x10^3/uL (0-0.1); BASOPHILS % (AUTO) 1 % (0-1); EOSINOPHILS # (AUTO) 0.27 x10^3/uL (0-0.4); EOSINOPHILS % (AUTO) 4 % (1-7); LYMPHOCYTES % (AUTO) 12 % (22-44); MD NO; MEAN CORPUSCULAR HEMOGLOBIN 31.9 pg (27.5-34.5); MEAN CORPUSCULAR HGB CONC 33.8 g/dL (33.2-36.2); MEAN CORPUSCULAR VOLUME 94.3 fL (81-97); MONOCYTES # (AUTO) 0.88 x10^3/uL (0.2-0.8); MONOCYTES % (AUTO) 13 % (2-9); NEUTROPHILS # (AUTO) 4.66 x10^3/uL (1.8-6.8); NEUTROPHILS % (AUTO) 70 % (42-75); PLATELET COUNT 317 x10^3/uL (130-400); RED BLOOD COUNT 3.47 x10^6/uL (4.38-5.82)
[2018-04-10 05:48] LABS: ANION GAP 4 mmol/L (5-15); CALCIUM 8.3 mg/dL (8.5-10.1); CHLORIDE 104 mmol/L (98-107); CREATININE 0.46 mg/dL (0.7-1.3)
[2018-04-10] MEDS: LEVOTHYROXINE 88 MCG TABLET PO SCH (05:59)
[2018-04-10 07:08] VITALS: BP 106/66
[2018-04-10] MEDS: APIXABAN 5 MG TABLET PO SCH (08:53)
[2018-04-10] MEDS: TAMSULOSIN 0.4 MG CAP.ER.24H PO SCH (08:53)
[2018-04-10] MEDS: FINASTERIDE 5 MG TABLET PO SCH (08:54)
[2018-04-10] MEDS: DOCUSATE 100 MG CAPSULE PO SCH (08:54)
[2018-04-10] MEDS: FAMOTIDINE 20 MG TABLET PO SCH (08:55)
[2018-04-10] MEDS: ALBUTEROL/IPRATROPIUM 2.5MG/0.5MG, 3 ML IPPB SCH (09:20)
[2018-04-10 13:10] VITALS: BP 108/70
[2018-04-10 13:40] VITALS: BP 104/68
[2018-04-10] MEDS ORDERED: DILT120C9 PO (14:50)
[2018-04-10] MEDS ORDERED: ERGO500017 PO (14:50)
== END 2018-04-10 18:22 | disposition home health service (06) | DRG 163 ==
LOC: ED 13:00 → EDIP 13:34 → 5SO 15:19 → CCU 03-30 19:08 → 4NOR 04-04 14:00
PROVIDERS: ADMIT Internal Medicine; ATTEND Internal Medicine
PROC: 0W993ZZ Drainage of Right Pleural Cavity, Percutaneous Approach (ICD-10-PCS; principal; 2018-03-28)
PROC: 0BNK4ZZ Release Right Lung, Percutaneous Endoscopic Approach (ICD-10-PCS; 2018-03-30)
PROC: 0W9940Z Drainage of Right Pleural Cavity with Drainage Device, Percutaneous Endoscopic Approach (ICD-10-PCS; 2018-03-30)
PROC: 0BH17EZ Insertion of Endotracheal Airway into Trachea, Via Natural or Artificial Opening (ICD-10-PCS; 2018-03-30)
PROC: 5A1945Z Respiratory Ventilation, 24-96 Consecutive Hours (ICD-10-PCS; 2018-03-30)
PROC: 02HV33Z Insertion of Infusion Device into Superior Vena Cava, Percutaneous Approach (ICD-10-PCS; 2018-03-31)
PROC: 3E0L3GC Introduction of Other Therapeutic Substance into Pleural Cavity, Percutaneous Approach (ICD-10-PCS; 2018-04-03)
DX: J94.2 Hemothorax (principal); J96.21 Acute and chronic respiratory failure with hypoxia; E87.3 Alkalosis; E87.1 Hypo-osmolality and hyponatremia; E27.40 Unspecified adrenocortical insufficiency; I31.3 Pericardial effusion (noninflammatory); I50.30 Unspecified diastolic (congestive) heart failure; J98.11 Atelectasis; Z99.11 Dependence on respirator [ventilator] status; D68.69 Other thrombophilia; J90 Pleural effusion, not elsewhere classified; I95.9 Hypotension, unspecified; J44.9 Chronic obstructive pulmonary disease, unspecified; I48.2 Chronic atrial fibrillation; I45.10 Unspecified right bundle-branch block; E87.6 Hypokalemia; E66.01 Morbid (severe) obesity due to excess calories; Z99.81 Dependence on supplemental oxygen; I11.0 Hypertensive heart disease with heart failure; N40.0 Benign prostatic hyperplasia without lower urinary tract symptoms; E03.9 Hypothyroidism, unspecified; Z68.39 Body mass index [BMI] 39.0-39.9, adult; E87.8 Other disorders of electrolyte and fluid balance, not elsewhere classified; I27.20 Pulmonary hypertension, unspecified; K59.00 Constipation, unspecified; Z51.5 Encounter for palliative care; Z66 Do not resuscitate; Z79.01 Long term (current) use of anticoagulants; Z82.49 Family history of ischemic heart disease and other diseases of the circulatory system
CPT/HCPCS: 32555; 36415; 36600; 71045; 71250; 71260; 80048; 80053; 82040; 82042; 82306; 82533; 82607; 82803; 82945; 83615; 83735; 83880; 84100; 84157; 84478; 84484; 85014; 85018; 85025; 87015; 87070; 87075; 87081; 87102; 87116; 87205; 87206; 88112; 88305; 89051; 93005; 93306; 93922; 94003; 94640; 94667; 94668; 99285; C1729; G0378; J0690; J1100; J1940; J2405; J2704; J2710; J3010; J3490; J7620; Q9967; 29581-50; J0330; J1120; J1720; J3475; J7030; J7040; J7050

== ENCOUNTER 2018-07-11 11:30 | Inpatient (IN) | payer MEDICARE, OTHER ==
[~2018-07-11] VITALS: Ht 182.9 cm; Wt 116.1 kg
[~2018-07-11 11:30] MED LIST: ALBU8.5H8 INH; APIX5TAB PO; ASPI-496 PO; DILT120C9 PO; DILT180C9 PO; ERGO500017 PO; FINA5TAB4 PO; FURO-92 PO; IPRA4AER INH; LEVO88TA4 PO; MULT-6 PO; POTA20TA14 PO; TAMS0.4C2 PO
--- NOTE | 2018-07-11 14:38 | NUR ---
TO ROOM FROM LOBBY. NAD.
--- NOTE | 2018-07-11 15:14 | NUR ---
PT PRESENTS TO ED WITH C/O COUGH AND INTERMITTENT SOB. PT STATES "SOMETIMES MY OXYGEN HAS BEEN LOW EVEN WITH MY HOME OXYGEN." PT STATES COUGH HAS BEEN INTERMITTENT X 2-3 WEEKS, PT WEARS OXYGEN AT 3L/MIN CONTINUOUSLY. ALL MONITORS IN PLACE. EKG TAKEN IN TRIAGE. PT'S SPO2 95-97% ON 3L OXYGEN. AWAITING PROVIDER AND ORDERS AT THIS TIME.
[2018-07-11 16:03] LABS: BASOPHILS # (AUTO) 0.05 x10^3/uL (0-0.1); BASOPHILS % (AUTO) 1 % (0-1); EOSINOPHILS % (AUTO) 2 % (1-7); LYMPHOCYTES # (AUTO) 1.18 x10^3/uL (1-3.4); LYMPHOCYTES % (AUTO) 13 % (22-44); MD NO; MEAN CORPUSCULAR HEMOGLOBIN 28.7 pg (27.5-34.5); MEAN CORPUSCULAR HGB CONC 32.8 g/dL (33.2-36.2); MEAN CORPUSCULAR VOLUME 87.3 fL (81-97); MEAN PLATELET VOLUME 8.8 fL (7.4-10.4); MONOCYTES % (AUTO) 11 % (2-9); NEUTROPHILS % (AUTO) 72 % (42-75); PLATELET COUNT 220 x10^3/uL (130-400); RED BLOOD COUNT 4.45 x10^6/uL (4.38-5.82); RED CELL DISTRIBUTION WIDTH 17.1 % (9.4-14.8)
[2018-07-11 16:10] LABS: ALBUMIN 3.1 g/dL (3.4-5.0); ANION GAP 3 mmol/L (5-15); CHLORIDE 98 mmol/L (98-107); CREATININE 0.68 mg/dL (0.7-1.3)
[2018-07-11 16:14] LABS: TROPONIN I < 0.015 ng/mL (0.000-0.045)
[2018-07-11] MEDS ORDERED: FURO20TA3 PO (16:39)
--- NOTE | 2018-07-11 16:40 | NUR ---
PT RESTING ON GURNEY, RESPS EVEN AND UNLABORED. PT DENIES ANY PAIN. AWAITING ADMIT ORDERS AND ROOM ASSIGNMENT AT THSI TIME.
[2018-07-11] MEDS ORDERED: AZITHROMYCIN 500 MG in SODIUM CHLORIDE 0.9% 250 ML IV ONE (17:00)
[2018-07-11] MEDS ORDERED: CEFTRIAXONE 1,000 MG in SODIUM CHLORIDE 0.9% 50 ML IVPB ONE (17:00)
[2018-07-11] MEDS ORDERED: CEFTRIAXONE PMX 1GM/50ML 0 ML ONE (17:06)
--- NOTE | 2018-07-11 17:13 | NUR ---
JASON TAMEZ AT BEDSIDE TO UPDATE PT AND FAMILY WITH RESULTS. PER EDMD, INFILTRATES NOTED ON CXR ARE CHRONIC, NOT SUSPICIOUS FOR PNA. INSTRUCTED RN TO HOLD IV ABX.
--- NOTE | 2018-07-11 18:30 | NUR ---
PT RESTING ON GURNEY, PT A&O, RESPS EVEN AND UNLABORED. PT DENIES PAIN. AWAITING MED TELE BED AND ADMIT.
--- NOTE | 2018-07-11 19:21 | NUR ---
report to break JOSEPH Arthur.
[2018-07-11] MEDS ORDERED: DOCUSATE 100 MG CAPSULE PO PRN (19:30)
[2018-07-11] MEDS ORDERED: GUAIFENESIN/DM 200-20MG, 10ML UDC PO PRN (19:30)
[2018-07-11] MEDS ORDERED: ACETAMINOPHEN 325 MG TABLET PO PRN (19:30)
[2018-07-11] MEDS ORDERED: METOCLOPRAMIDE 5 MG/ML, 2ML IVPush PRN (19:30)
[2018-07-11] MEDS ORDERED: LIDODERM 5% PATCH TD PRN (19:30)
[2018-07-11] MEDS ORDERED: LABETALOL 5 MG/ML SYRINGE IVPush PRN (19:30)
--- NOTE | 2018-07-11 19:32 | NUR ---
PT RESTING IN BED, AWAITING ROOM UPSTAIRS, NO COMPLAINTS, VSS
--- NOTE | 2018-07-11 19:42 | NUR ---
REPORT CALLED TO FLOOR
[2018-07-11 20:05] VITALS: BP 129/80
[2018-07-11] MEDS ORDERED: ERGOCALCIFEROL 50,000 UNIT CAPSULE PO SCH (21:00)
[2018-07-11] MEDS: FUROSEMIDE 40 MG/4 ML IV SCH (22:19)
[2018-07-11] MEDS: APIXABAN 5 MG TABLET PO SCH (22:19)
[2018-07-11] MEDS ORDERED: ALBUTEROL SULFATE 2.5 MG/3 ML NPPB PRN (22:30)
[2018-07-12 01:34] VITALS: BP 115/76
[2018-07-12 02:01] VITALS: BP 110/73
[2018-07-12] MEDS ORDERED: METOPROLOL TARTRATE 25 MG TABLET ONE (02:12)
[2018-07-12] MEDS ORDERED: METOPROLOL TARTRATE 25 MG TABLET PO ONE (02:30)
[2018-07-12 04:18] LABS: BASOPHILS # (AUTO) 0.04 x10^3/uL (0-0.1); BASOPHILS % (AUTO) 1 % (0-1); EOSINOPHILS # (AUTO) 0.25 x10^3/uL (0-0.4); EOSINOPHILS % (AUTO) 3 % (1-7); LYMPHOCYTES # (AUTO) 0.93 x10^3/uL (1-3.4); LYMPHOCYTES % (AUTO) 12 % (22-44); MD NO; MEAN CORPUSCULAR HGB CONC 32.2 g/dL (33.2-36.2); MEAN CORPUSCULAR VOLUME 87.1 fL (81-97); MEAN PLATELET VOLUME 8.9 fL (7.4-10.4); MONOCYTES # (AUTO) 0.96 x10^3/uL (0.2-0.8); MONOCYTES % (AUTO) 12 % (2-9); NEUTROPHILS % (AUTO) 73 % (42-75); PLATELET COUNT 227 x10^3/uL (130-400); RED BLOOD COUNT 4.36 x10^6/uL (4.38-5.82); RED CELL DISTRIBUTION WIDTH 17.5 % (9.4-14.8)
[2018-07-12 04:30] LABS: ANION GAP 3 mmol/L (5-15); CALCIUM 8.6 mg/dL (8.5-10.1); CHLORIDE 98 mmol/L (98-107)
[2018-07-12 07:54] VITALS: BP 113/73
[2018-07-12] MEDS ORDERED: FUROSEMIDE 20 MG TABLET PO SCH (09:00)
[2018-07-12] MEDS: LEVOTHYROXINE 88 MCG TABLET PO SCH (09:46)
[2018-07-12] MEDS: FINASTERIDE 5 MG TABLET PO SCH (09:46)
[2018-07-12] MEDS: TAMSULOSIN 0.4 MG CAP.ER.24H PO SCH (09:47)
[2018-07-12] MEDS: ASPIRIN 81 MG TABLET CHEW PO SCH (09:47)
[2018-07-12] MEDS: APIXABAN 5 MG TABLET PO SCH ×2 (09:47→20:33)
[2018-07-12] MEDS: MULTIVITAMIN 1 TABLET PO SCH (09:48)
[2018-07-12] MEDS: FUROSEMIDE 40 MG/4 ML IV SCH ×2 (09:50→17:35)
[2018-07-12] MEDS: CARVEDILOL 3.125 MG TABLET PO SCH (12:29)
[2018-07-12 13:39] VITALS: BP 100/64
[2018-07-12 14:18] LABS: CREATINE KINASE, TOTAL 17 U/L (39-308); TROPONIN I < 0.015 ng/mL (0.000-0.045)
[2018-07-12 14:26] LABS: FREE T4 (FREE THYROXINE) 1.38 ng/dL (0.76-1.46); THYROID STIMULATING HORMONE 1.84 mIU/L (0.358-3.740)
[2018-07-12 20:09] VITALS: BP 114/77
[2018-07-12 23:46] VITALS: BP 106/71
[2018-07-12] MEDS: TEMAZEPAM 15 MG CAPSULE PO PRN (23:48)
[2018-07-13] VITALS (7 sets, daily range): BP systolic 91–111; BP diastolic 62–74
[2018-07-13 05:32] LABS: BASOPHILS # (AUTO) 0.03 x10^3/uL (0-0.1); BASOPHILS % (AUTO) 0 % (0-1); EOSINOPHILS # (AUTO) 0.32 x10^3/uL (0-0.4); EOSINOPHILS % (AUTO) 5 % (1-7); LYMPHOCYTES # (AUTO) 1.01 x10^3/uL (1-3.4); LYMPHOCYTES % (AUTO) 15 % (22-44); MD NO; MEAN CORPUSCULAR HEMOGLOBIN 28.5 pg (27.5-34.5); MEAN CORPUSCULAR HGB CONC 32.5 g/dL (33.2-36.2); MEAN CORPUSCULAR VOLUME 87.4 fL (81-97); MEAN PLATELET VOLUME 8.7 fL (7.4-10.4); MONOCYTES % (AUTO) 12 % (2-9); NEUTROPHILS % (AUTO) 68 % (42-75); PLATELET COUNT 221 x10^3/uL (130-400); RED BLOOD COUNT 4.57 x10^6/uL (4.38-5.82); RED CELL DISTRIBUTION WIDTH 16.9 % (9.4-14.8)
[2018-07-13 05:40] LABS: ANION GAP 4 mmol/L (5-15); CALCIUM 8.5 mg/dL (8.5-10.1); CHLORIDE 96 mmol/L (98-107); CREATININE 0.66 mg/dL (0.7-1.3)
[2018-07-13] MEDS: LEVOTHYROXINE 88 MCG TABLET PO SCH (06:29)
[2018-07-13] MEDS: APIXABAN 5 MG TABLET PO SCH ×2 (09:08→21:45)
[2018-07-13] MEDS: ASPIRIN 81 MG TABLET CHEW PO SCH (09:08)
[2018-07-13] MEDS: MULTIVITAMIN 1 TABLET PO SCH (09:08)
[2018-07-13] MEDS: TAMSULOSIN 0.4 MG CAP.ER.24H PO SCH (09:08)
[2018-07-13] MEDS: FINASTERIDE 5 MG TABLET PO SCH (09:08)
[2018-07-13] MEDS: FUROSEMIDE 40 MG/4 ML IV SCH ×2 (09:08→16:25)
[2018-07-13] MEDS: CARVEDILOL 3.125 MG TABLET PO SCH (11:04)
[2018-07-13] MEDS: TEMAZEPAM 15 MG CAPSULE PO PRN (21:45)
[2018-07-14 02:32] VITALS: BP 110/72
[2018-07-14 05:11] VITALS: BP 116/79
[2018-07-14 05:14] LABS: BASOPHILS # (AUTO) 0.03 x10^3/uL (0-0.1); BASOPHILS % (AUTO) 0 % (0-1); EOSINOPHILS % (AUTO) 6 % (1-7); LYMPHOCYTES # (AUTO) 1.04 x10^3/uL (1-3.4); LYMPHOCYTES % (AUTO) 15 % (22-44); MD NO; MEAN CORPUSCULAR HEMOGLOBIN 28.1 pg (27.5-34.5); MEAN CORPUSCULAR HGB CONC 32.2 g/dL (33.2-36.2); MEAN CORPUSCULAR VOLUME 87.5 fL (81-97); MEAN PLATELET VOLUME 8.5 fL (7.4-10.4); MONOCYTES # (AUTO) 0.75 x10^3/uL (0.2-0.8); MONOCYTES % (AUTO) 11 % (2-9); NEUTROPHILS # (AUTO) 4.58 x10^3/uL (1.8-6.8); NEUTROPHILS % (AUTO) 67 % (42-75); PLATELET COUNT 234 x10^3/uL (130-400); RED BLOOD COUNT 4.79 x10^6/uL (4.38-5.82); RED CELL DISTRIBUTION WIDTH 16.9 % (9.4-14.8)
[2018-07-14] MEDS: LEVOTHYROXINE 88 MCG TABLET PO SCH (05:14)
[2018-07-14] MEDS: CARVEDILOL 3.125 MG TABLET PO SCH (05:14)
[2018-07-14 05:23] LABS: ANION GAP 2 mmol/L (5-15); CALCIUM 8.9 mg/dL (8.5-10.1); CHLORIDE 96 mmol/L (98-107)
[2018-07-14 05:24] LABS: CREATININE 0.71 mg/dL (0.7-1.3)
[2018-07-14 07:26] VITALS: BP 121/77
[2018-07-14] MEDS: FUROSEMIDE 40 MG/4 ML IV SCH (07:30)
[2018-07-14] MEDS: TAMSULOSIN 0.4 MG CAP.ER.24H PO SCH (08:48)
[2018-07-14] MEDS: FINASTERIDE 5 MG TABLET PO SCH (08:48)
[2018-07-14] MEDS: ASPIRIN 81 MG TABLET CHEW PO SCH (08:48)
[2018-07-14] MEDS: APIXABAN 5 MG TABLET PO SCH (08:48)
[2018-07-14] MEDS: MULTIVITAMIN 1 TABLET PO SCH (08:48)
== END 2018-07-14 12:45 | disposition home or self-care (01) | DRG 177 ==
LOC: ED 16:21 → EDIP 17:44 → 4WST 19:51 → DCLOUNGE 07-14 12:39
PROVIDERS: ADMIT Internal Medicine; ATTEND Internal Medicine
DX: J15.6 Pneumonia due to other Gram-negative bacteria (principal); J96.20 Acute and chronic respiratory failure, unspecified whether with hypoxia or hypercapnia; I50.33 Acute on chronic diastolic (congestive) heart failure; I11.0 Hypertensive heart disease with heart failure; J15.9 Unspecified bacterial pneumonia; E03.9 Hypothyroidism, unspecified; I27.20 Pulmonary hypertension, unspecified; I48.2 Chronic atrial fibrillation; N40.0 Benign prostatic hyperplasia without lower urinary tract symptoms; Z79.01 Long term (current) use of anticoagulants
CPT/HCPCS: 36415; 71046; 80048; 82040; 82550; 83605; 83735; 83880; 84145; 84439; 84443; 84484; 85025; 87040; 93005; 93306; 99285; G0378; J1940

== ENCOUNTER 2021-01-11 14:15 | Day surgery (SDC) | payer MEDICARE ==
[~2021-01-11] VITALS: Ht 182.9 cm; Wt 126.8 kg
[~2021-01-11 14:15] MED LIST changes: +AMOX1TAB64 PO; +BACITRACIN OINT 500U/GM, 15 GM ONE; +BUPIVACAINE/PF 0.5% ONE; +CLIN300C9 PO; +DILT-86 PO; +DILT120C48 PO; -DILT120C9 PO; -DILT180C9 PO; +DOCU-131 PO; +EPINEPHRINE 1 MG/ML, 1ML ONE; +FURO20TA3 PO; +FURO40TA6 PO; +HYDR-2214 PO; +LIDOCAINE/PF 1%-EPI 1:200K, 30 ML ONE; +MINERAL OIL 10 ML VIAL MC ONE
[2021-01-11] MEDS ORDERED: FENTANYL PF 250 MCG/5ML ONE (14:46)
[2021-01-11] MEDS ORDERED: MIDAZOLAM 1 MG/ML, 2ML ONE (14:46)
[2021-01-11] MEDS ORDERED: AMOX1TAB64 PO (14:50)
[2021-01-11] MEDS ORDERED: VIT D2 PO (14:50)
[2021-01-11] MEDS ORDERED: APIX5TAB PO (14:50)
[2021-01-11] MEDS ORDERED: DILTIAZEM PO (14:50)
[2021-01-11] MEDS ORDERED: FURO20TA3 PO (14:50)
[2021-01-11] MEDS ORDERED: LACTATED RINGERS 1,000 ML IV SCH (15:00)
[2021-01-11] MEDS ORDERED: CHLORHEXIDINE 15 ML UDC PO ONE (15:00)
[2021-01-11 15:03] VITALS: BP 136/87
[2021-01-11] MEDS ORDERED: SUCCINYLCHOLINE 20 MG/ML, 10ML ONE (15:10)
[2021-01-11] MEDS ORDERED: ONDANSETRON 2MG/ML, 2ML ONE (15:10)
[2021-01-11] MEDS ORDERED: PROPOFOL 10 MG/ML, 20ML ONE (15:10)
[2021-01-11] MEDS ORDERED: CEFAZOLIN 1,000 MG ONE (15:10)
[2021-01-11] MEDS ORDERED: MEPERIDINE/PF 25MG/0.5ML IVPush PRN (15:30)
[2021-01-11] MEDS ORDERED: FENTANYL PF 100 MCG/2ML IV PRN (15:30)
[2021-01-11] MEDS ORDERED: METOCLOPRAMIDE 5 MG/ML, 2ML IV PRN (15:30)
[2021-01-11] MEDS ORDERED: OXYcodone 5 MG/5 ML ORAL.SOL UDC PO PRN (15:30)
[2021-01-11] MEDS ORDERED: hydrALAzine 20 MG/ML, 1ML IV PRN (15:30)
[2021-01-11] MEDS ORDERED: KETOROLAC 30 MG/1 ML IV PRN (15:30)
[2021-01-11] MEDS ORDERED: ALBUTEROL SULFATE 2.5 MG/3 ML NPPB PRN (15:30)
[2021-01-11] MEDS ORDERED: PROMETHAZINE 25 MG/ML, 1ML IV PRN (15:30)
[2021-01-11] MEDS ORDERED: ONDANSETRON 2MG/ML, 2ML IVPush PRN (15:30)
[2021-01-11] MEDS ORDERED: DIAZEPAM 5 MG/ML, 2ML IV PRN ×2 (15:30)
[2021-01-11] MEDS ORDERED: HYDROmorphone 1 MG/ML, 1ML INJ IV PRN (15:30)
[2021-01-11] MEDS ORDERED: LABETALOL 5MG/ML, 20ML IV PRN (15:30)
[2021-01-11 17:12] LABS: INTERNATIONAL NORMALIZED RATIO 1.08 (0.93-1.1); PROTHROMBIN TIME 11.5 Seconds (9.6-11.5)
== END 2021-01-11 17:50 | disposition home or self-care (01) ==
LOC: OUT 14:15
PROVIDERS: ATTEND Specialist
DX: S81.802A Unspecified open wound, left lower leg, initial encounter (principal); L03.116 Cellulitis of left lower limb; I10 Essential (primary) hypertension; I48.91 Unspecified atrial fibrillation; E66.9 Obesity, unspecified; Z20.822 Contact with and (suspected) exposure to COVID-19; Z79.01 Long term (current) use of anticoagulants; Z79.899 Other long term (current) drug therapy; X58.XXXA Exposure to other specified factors, initial encounter; Y93.89 Activity, other specified; Y92.89 Other specified places as the place of occurrence of the external cause; Y99.8 Other external cause status
CPT/HCPCS: 15100; 15101; 36415; 85610; 87635; J0171; J2250; J3010; J7120; J0690; J2405; J2704; J0330